=== PATIENT | female | born 1930 | race Caucasian/White ===

== ENCOUNTER 2017-02-26 11:24 | Emergency (ER) | payer MEDICARE, MEDICAID ==
--- NOTE | 2017-02-26 12:10 | ER Document Report ---
ED General - General Mode of Arrival: Ambulatory Information source: Patient TRAVEL OUTSIDE OF THE [place] IN LAST 30 DAYS: No <MARIAN BRAVO - Last Filed: 02/26/17 13:13> <RENATE MCKEON - Last Filed: 02/26/17 17:52> - General Chief Complaint: Medical Complaint Stated Complaint: ALTERED MENTAL STATUS Time Seen by Provider: 02/26/17 11:54 Notes: Patient is an 86 year old female that presents to the emergency department today with complaints of possibly being found unresponsive today by [facility] staff. Family at bedside states the patient has frequent episodes of this , as she is a "heavy sleeper" because she does not sleep well at night. EMS states when they arrived on scene the patient was responsive and at baseline. Family at bedside states the patient is at baseline now. Patient has no complaints at this time. (MARIAN BRAVO) - Related Data Allergies/Adverse Reactions: Sulfa (Sulfonamide Antibiotics) Allergy (Verified 03/27/12 21:10) Past Medical History - General Information source: Patient, Relative, [facility] Records - Social History Smoking Status: Never Smoker Cigarette use (# per day): No Frequency of alcohol use: None Drug Abuse: None Lives with: Family Family History: Reviewed & Not Pertinent, CVA, DM Patient has suicidal ideation: No Patient has homicidal ideation: No - Past Medical History Cardiac Medical History: Reports: Hx Congestive Heart Failure, Hx Coronary Artery Disease, Hx Heart Attack, Hx Hypercholesterolemia, Hx Hypertension Pulmonary Medical History: Reports: Hx COPD, Hx Pneumonia Neurological Medical History: Reports: Hx Migraine Malignancy Medical History: Reports: Hx Breast Cancer GI Medical History: Reports: Hx Diverticulitis, Hx Gastritis, Hx Gastroesophageal Reflux Disease Musculoskeltal Medical History: Reports Hx Arthritis Past Surgical History: Reports: Hx Abdominal Surgery - intestinal, Hx Appendectomy, Hx Breast Surgery, Hx Cholecystectomy, Hx Coronary Artery Bypass Graft - 12-15 YRS AGO, Hx Hysterectomy, Hx Mastectomy - left 2006, Hx Open Heart Surgery - Immunizations Immunizations up to date: No Hx Diphtheria, Pertussis, Tetanus Vaccination: Yes Hx Pneumococcal Vaccination: 05/25/09 <MARIAN BRAVO - Last Filed: 02/26/17 13:13> Review of Systems - Review of Systems Constitutional: No symptoms reported EENT: No symptoms reported Cardiovascular: No symptoms reported Respiratory: No symptoms reported Gastrointestinal: No symptoms reported Genitourinary: No symptoms reported Female Genitourinary: No symptoms reported Musculoskeletal: No symptoms reported Skin: No symptoms reported Hematologic/Lymphatic: No symptoms reported Neurological/Psychological: No symptoms reported -: Yes All other systems reviewed and negative <MARIAN BRAVO - Last Filed: 02/26/17 13:13> Physical Exam - Vital signs Interpretation: Normal - General General appearance: Appears well, Alert - HEENT Head: Normocephalic, Atraumatic Eyes: Normal Pupils: PERRL - Respiratory Respiratory status: No respiratory distress Chest status: Nontender Breath sounds: Normal Chest palpation: Normal - Cardiovascular Rhythm: Regular Heart sounds: Normal auscultation Murmur: No - Abdominal Inspection: Normal Distension: No distension Bowel sounds: Normal Tenderness: Nontender Organomegaly: No organomegaly - Back Back: Normal, Nontender - Extremities General upper extremity: Normal inspection, Normal ROM, Normal strength. No: Edema General lower extremity: Normal inspection, Normal ROM, Normal strength. No: Edema - Neurological Neuro grossly intact: Yes Cognition: Normal Orientation: AAOx4 [place] Coma Scale Eye Opening: Spontaneous [place] Coma Scale Verbal: Oriented [place] Coma Scale Motor: Obeys Commands [place] Coma Scale Total: 15 Speech: Normal Sensory: Normal - Psychological Associated symptoms: Normal affect, Normal mood - Skin Skin Temperature: Warm Skin Moisture: Dry Skin Color: Normal <MARIAN BRAVO - Last Filed: 02/26/17 13:13> - Extremities General lower extremity: Other - Left dorsal forearm skin tear with a clear dressing over it and fresh blood under the clear plastic dressing. <RENATE MCKEON - Last Filed: 02/26/17 17:52> - Vital signs Vitals: Resp BP Pulse Ox 16 87/52 L 96 02/26/17 11:36 02/26/17 11:36 02/26/17 11:36 Course - Laboratory Result Diagrams: 02/26/17 12:54 02/26/17 12:54 <MARIAN BRAVO - Last Filed: 02/26/17 13:13> - Laboratory Result Diagrams: 02/26/17 12:54 02/26/17 12:54 - Diagnostic Test Radiology reviewed: Image reviewed, Reports reviewed - Chest x-ray is read as emphysematous changes with some segmental airspace disease in the lower lungs. Impression was COPD with suspect early pulmonary edema or sepsis. - EKG Interpretation by Me EKG shows normal: Sinus rhythm, [place], Intervals, QRS Complexes, ST-T Waves Rate: Normal - 59 Heart block present: 1st Degree When compared to previous EKG there are: No significant change <RENATE MCKEON - Last Filed: 02/26/17 17:52> - Re-evaluation Re-evalutation: 02/26/17 17:46 After 1 L of IV fluids, the patient does feel much better she is procured smiling and talking more. Her blood pressure has increased to the 105 level but that is the only reading we have been getting for quite some time. Her pulse ox has been 98% on room air when she is resting. I had the staff stand her up to check her pressure manually and it is actually 139/87 now. Her chest x-ray did show some chronic emphysematous changes, however I think the rest of the readings were probably based on the reason for the chest x-ray being done as there is nothing about her exam or lab work to suggest sepsis or congestive heart failure. (RENATE MCKEON) - Vital Signs Vital signs: Temp Pulse Resp BP Pulse Ox 97.7 F 56 L 16 102/62 100 02/26/17 11:40 02/26/17 11:40 02/26/17 17:00 02/26/17 17:35 02/26/17 17:00 - Laboratory Laboratory results interpreted by fl: 02/26/17 02/26/17 02/26/17 12:54 12:54 12:54 Hct 35.5 L Seg Neutrophils % 81.6 H Lymphocytes % 10.6 L BUN 23 H Est GFR (Non-Af Amer) 54 L Glucose 111 H Calcium 10.5 H Creatine Kinase 29 L NT-Pro-B Natriuret Pep 752 H Discharge <MARIAN BRAVO - Last Filed: 02/26/17 13:13> <RENATE MCKEON - Last Filed: 02/26/17 17:52> - Discharge Clinical Impression: Dehydration Hypotension Qualifiers: Hypotension type: unspecified hypotension type Qualified Code(s): I95.9 - Hypotension, unspecified Condition: Stable Disposition: HOME, SELF-CARE Additional Instructions: Dehydration: Dehydration can result from vomiting or diarrhea, fever, or decreased intake of fluids. If severe, hospitalization and intravenous fluids may be required. Most cases are treated at home with fluids by mouth. For the next 24 hours, drink lots of clear fluids. Call the doctor or return for re-examination if you become progressively weak, vomit repeatedly, or have other new symptoms. Your lab work did suggest some dehydration. Your blood pressure and mental status did seem to respond to some IV fluids. At this time you should increase your oral fluid intake for the next few days. Follow-up with your medical doctor if not continuing to improve. RETURN TO THE EMERGENCY ROOM IF ANY NEW OR WORSENING SYMPTOMS. Scribe Attestation: 02/26/17 17:50 I personally performed the services described in the documentation, reviewed and edited the documentation which was dictated to the scribe in my presence, and it accurately records my words and actions. (RENATE MCKEON) Scribe Documentation - Scribe Written by Humble:: Humble Kelley, 02/26/2017 1355 acting as scribe for :: Edu <MARIAN BRAVO - Last Filed: 02/26/17 13:13>
[2017-02-26] MEDS ORDERED: NORMAL SALINE 1000 ML 500 ML IV ONE (12:37)
[2017-02-26 13:09] LABS: APPEARANCE,URINE SLIGHTLY-CLOUDY; BILIRUBIN,URINE NEGATIVE (NEGATIVE); GLUCOSE, URINE NEGATIVE (NEGATIVE); KETONES,URINE NEGATIVE (NEGATIVE); LEUKOCYTE ESTERASE,URINE NEGATIVE (NEGATIVE); NITRITE,URINE NEGATIVE (NEGATIVE); PROTEIN,URINE NEGATIVE (NEGATIVE); UROBILINOGEN,URINE NEGATIVE mg/dL (<2.0)
[2017-02-26 13:12] LABS: ABSOLUTE BASOPHILS # (AUTO) 0.1 10^3/uL (0.0-0.2); ABSOLUTE EOSINOPHILS # (AUTO) 0.2 10^3/uL (0.0-0.6); ABSOLUTE MONOCYTES (AUTO) 0.5 10^3/uL (0.1-1.4); ABSOLUTE NEUT (AUTO) 7.9 10^3/uL (1.7-8.2); BASOPHILS % (AUTO) 0.6 % (0-2); EOSINOPHILS % (AUTO) 1.7 % (0-6); HEMATOCRIT 35.5 % (36.0-47.0); HEMOGLOBIN 12.2 g/dL (12.0-15.5); HGB HCT DIFFERENCE 1.1; LYMPHOCYTES % (AUTO) 10.6 % (13-45); MEAN CORPUSCULAR HEMOGLOBIN 32.7 pg (27.0-33.4); MEAN CORPUSCULAR HGB CONC 34.3 g/dL (32.0-36.0); MEAN CORPUSCULAR VOLUME 95 fl (80-97); MONOCYTES % (AUTO) 5.5 % (3-13); RED BLOOD COUNT 3.72 10^6/uL (3.72-5.28); RED CELL DISTRIBUTION WIDTH 12.9 % (11.5-14.0); SEGMENTED NEUTROPHILS % (AUTO) 81.6 % (42-78); WHITE BLOOD COUNT 9.7 10^3/uL (4.0-10.5)
[2017-02-26 13:28] LABS: ALANINE AMINOTRANSFERASE 25 U/L (9-52); ALBUMIN 4.3 g/dL (3.5-5.0); ALKALINE PHOSPHATASE 68 U/L (38-126); ANION GAP 7 (5-19); ASPARTATE AMINO TRANSFERASE 21 U/L (14-36); BILIRUBIN,DIRECT 0.4 mg/dL (0.0-0.4); BILIRUBIN,TOTAL 0.6 mg/dL (0.2-1.3); BLOOD UREA NITROGEN 23 mg/dL (7-20); CALCIUM 10.5 mg/dL (8.4-10.2); CARBON DIOXIDE 29 mmol/L (22-30); CHLORIDE 106 mmol/L (98-107); CREATINE KINASE 29 U/L (30-135); CREATININE RESULT 0.98 mg/dL (0.52-1.25); GLUCOSE 111 mg/dL (75-110); POTASSIUM 4.6 mmol/L (3.6-5.0); SODIUM 141.5 mmol/L (137-145); TOTAL PROTEIN 7.2 g/dL (6.3-8.2)
--- NOTE | 2017-02-26 16:16 | RADIOLOGY REPORT (SQ) ---
EXAM DESCRIPTION: CHEST SINGLE VIEW COMPLETED DATE/TIME: 02/26/2017 3:15 pm REASON FOR STUDY: hypotension COMPARISON: 12/16/2014 NUMBER OF VIEWS: One view. TECHNIQUE: Single frontal radiographic image of the chest acquired. LIMITATIONS: Positioning. FINDINGS: LUNGS AND PLEURA: Emphysematous changes. Subsegmental airspace disease in the lower lungs . MEDIASTINUM AND HEART: Stable cardiomegaly. BONY STRUCTURES: No acute findings. HARDWARE: CABG. Left mastectomy and axillary node dissection. OTHER: No other significant finding. IMPRESSION: COPD. Suspect early pulmonary edema or sepsis. Clinical correlation is needed. TECHNICAL DOCUMENTATION: JOB ID: [id number]
[2017-02-26 16:25] LABS: ADD ON TESTING BLD IN LAB ACKNOWLEDGE
[2017-02-26 16:49] LABS: MAGNESIUM 2.3 mg/dL (1.6-2.3)
[2017-02-26 17:59] VITALS: BP 139/82
--- NOTE | 2017-02-27 11:12 | EKG REPORT ---
SEVERITY:- ABNORMAL ECG - SINUS RHYTHM FIRST DEGREE AV BLOCK PROBABLE INFERIOR INFARCT, AGE INDETERMINATE ANTERIOR INFARCT, AGE INDETERMINATE : Confirmed by: Mindy Oneil MD 27-Feb-2017 11:11:57
== END 2017-02-26 20:08 | disposition home or self-care (01) ==
LOC: ER 11:24
DX: E86.0 Dehydration (principal); I95.9 Hypotension, unspecified; R41.82 Altered mental status, unspecified; I50.9 Heart failure, unspecified; I25.10 Atherosclerotic heart disease of native coronary artery without angina pectoris; E78.00 Pure hypercholesterolemia, unspecified; I11.0 Hypertensive heart disease with heart failure; J44.9 Chronic obstructive pulmonary disease, unspecified; Z88.2 Allergy status to sulfonamides; Z85.3 Personal history of malignant neoplasm of breast; Z90.49 Acquired absence of other specified parts of digestive tract; Z95.1 Presence of aortocoronary bypass graft; Z90.710 Acquired absence of both cervix and uterus; Z90.12 Acquired absence of left breast and nipple; I25.2 Old myocardial infarction
CPT/HCPCS: 93005; 99285; 96360; 96361; 51701; 36415; 82550; 83735; 85025; 80053; 81001; 84484; 83880; 71010; 93010; J7030